=== PATIENT | female | born 2000 | race Caucasian/White ===

== ENCOUNTER 2018-07-15 10:12 | Emergency (ER) | END 2018-07-15 13:28 | disposition home or self-care (01) ==

== ENCOUNTER 2018-11-26 09:01 | Emergency (ER) | payer OTHER ==
[~2018-11-26] VITALS: Wt 99.3 kg
[~2018-11-26 09:01] MED LIST: BENZ-6 PO; DOXY100T20 PO
[2018-11-26] MEDS ORDERED: HYDROCODONE/APAP (5/325) TAB PO ONE (10:30)
[2018-11-26] MEDS ORDERED: KETOROLAC 30 MG INJ IM STA (11:31)
[2018-11-26] MEDS ORDERED: HYDR-4011 PO (11:54)
[2018-11-26] MEDS ORDERED: IBUP-1542 PO (11:54)
[2018-11-26 12:04] VITALS: BP 132/62; PULSE 87; RESP 18
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
== END 2018-11-26 12:06 | disposition home or self-care (01) ==
LOC: FTE 09:01
DX: M79.605 Pain in left leg (principal); M25.552 Pain in left hip
CPT/HCPCS: 73510; 73550; 81025; 96372; J1885; Z7502; Z7610; 73502